=== PATIENT | male | born 1950 | race Caucasian/White ===

== ENCOUNTER 2023-07-24 16:10 | Emergency (ER) | payer MEDICARE, MEDICAID ==
[~2023-07-24] VITALS: Ht 180.3 cm; Wt 52.2 kg
[2023-07-24] MEDS ORDERED: ketorolac trometh inj. 60 MG/2 ML VIAL IM ONE (18:35)
[2023-07-24] MEDS ORDERED: ketorolac tromethamine 15mg/ml inj. IM ONE (18:40)
[2023-07-24 18:59] VITALS: BP 113/88; PULSE 108; RESP 16; TEMP 98.1; O2SAT 92
== END 2023-07-24 19:01 | disposition home or self-care (01) ==
LOC: ER 16:11
DX: M79.604 Pain in right leg (principal); M79.605 Pain in left leg; M79.10 Myalgia, unspecified site
CPT/HCPCS: 96372; 99283; J1885